=== PATIENT | male | born 2000 | race Two or more races ===

== ENCOUNTER 2020-02-25 11:03 | Emergency (ER) | payer OTHER ==
[~2020-02-25] VITALS: Ht 190.5 cm; Wt 127.0 kg
--- NOTE | 2020-02-25 12:06 | Diagnostic Imaging Report ---
[facility] HISTORY: Dizziness, nausea, high blood pressure COMPARISON: None. TECHNIQUE: Noncontrast axial scans were obtained from skull base to the vertex. Coronal and sagittal reconstructions obtained from the axial data. One or more of the following dose reduction techniques were used: Automated exposure control, adjustment of the mA and/or kV according to patient size, and/or utilization of iterative reconstruction technique. DISCUSSION: Scalp/Skull: Unremarkable. Brain sulci: Appropriate for patient's age. Ventricles: Mildly slitlike ventricles. Extra-axial spaces: No masses or fluid collections. Parenchyma: No abnormal densities. No mass, hemorrhage, or large vascular territory acute infarct. Dural sinuses: No abnormal densities. Sellar/Suprasellar region: Intact. Skull base: Intact. Incidental findings: Partially imaged mild scattered paranasal sinus mucosal thickening. IMPRESSION: 1. Nonspecific mildly slitlike ventricles, which could be seen in idiopathic intracranial hypertension. 2. No other intracranial abnormalities. Signed by: Dr. Van Kenyon M.D. on 02/25/2020 12:03 PM
--- OUTSIDE RECORDS SUMMARY | 2020-02-25 12:19 | XMS REPORT | Continuity of Care Document ---
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 Allergies, Adverse Reactions, Alerts This patient has no known allergies or adverse reactions. Medications This patient has no known medications. Procedures This patient has no known procedures. Results Test Description Test Time Test Comments Results Result Comments Source CT [facility]RAIN [facility] 2020-02-25 11:58:00 [facility] SAVANNAH CARRION : 2000 Sex: M [facility] [address] [address] Patient Name: SAVANNAH CARRION MR #: [id number] : 2000 Age/Sex: 19/M Req #: [id number] [facility] Physician: Ordered by: KARIME VÁZQUEZ MD Report #: [id number] Location: [facility] Room/Bed: Procedure: [id number] HOPD/CT [facility] Exam Date: Exam Time: REPORT STATUS: Signed CT [facility] HISTORY: Dizziness, nausea, high blood pressure COMPARISON: None. TECHNIQUE: Noncontrast axial scans were obtained from skull base to the vertex. Coronal and sagittal reconstructions obtained from the axial data. One or more of the following dose reduction techniques were used: Automated exposure control, adjustment of the mA and/or kV according to patient size, and/or utilization of iterative reconstruction technique. DISCUSSION: Scalp/Skull: Unremarkable. Brain sulci: Appropriate for patient's age. Ventricles: Mildly slitlike ventricles. Extra-axial spaces: No masses or fluid collections. Parenchyma: No abnormal densities. No mass, hemorrhage, or large vascular territory acute infarct. Dural sinuses: No abnormal densities. Sellar/Suprasellar region: Intact. Skull base: Intact. Incidental findings: Partially imaged mild scattered paranasal sinus mucosal thickening. IMPRESSION: 1. Nonspecific mildly slitlike ventricles, which could be seen in idiopathic intracranial hypertension. 2. No other intracranial abnormalities. Signed by: Dr. Van Kenyon M.D. on 02/25/2020 12:03 PM Dictated By: VAN KENYON MD 02 Transcribed By: DANIELLE on 02/25/201202 COPY TO: KARIME VÁZQUEZ MD
--- NOTE | 2020-02-25 12:25 | Emergency Department Note ---
History of Present Illnes History of Present Illness Chief Complaint: General Medicine Complaints History of Present Illness This is a 19 year old Other male Chief Complaint Comment "months" of feeling dizzy and headache x 3 days. no neuro defecits noted. cn 2-12 intact at time of triage. aaox4. ambulatory steady gait. no sob, no cp. states n/v. . Historian: Patient, Family Member Arrival Mode: Car Onset (how long ago): week(s) (2) Location: dizzy headache Quality: dizzy Radiation: Denies non-radiation, Denies back, Denies neck, Denies extremity, Denies abdomen, Denies periumbilical, Denies flank, Denies proximal, Denies distal, Denies other Severity: mild Onset quality: gradual Duration (how long): week(s) Timing of current episode: constant Progression: unchanged Chronicity: new Context: Denies recent illness, Denies recent surgery, Denies recent immobilization, Denies recent travel, Denies trauma/injury, Denies new medications, Denies hx of DVT/PE, Denies non-compliance w/ medications, Denies other Relieving factors: none Exacerbating factors: none Associated symptoms: Denies denies other symptoms, Denies confusion, Denies chest pain, Denies cough, Denies diaphoresis, Denies fever/chills, Denies headaches, Denies loss of appetite, Denies malaise, Denies nausea/vomiting, Denies rash, Denies seizure, Denies shortness of breath, Denies syncope, Denies weakness, Denies other Treatments prior to arrival: none Past Medical/Family History Physician Review I have reviewed the patient's past medical and family history. Any updates have been documented here. Past Medical History Recent Fever: No Clinical Suspicion of Infectio: No New/Unexplained Change in Ment: No Past Medical History: None Other Medical History: possible onset hypertension obesity Past Surgical History: None Social History Smoking Cessation: Unknown if ever smoked Counseling Performed: No Alcohol Use: None Any Illegal Drug Use: No Physically hurt or threatened: No Other Any Pre-Existing Lines (PICC,: No Review of Systems Review of Systems Constitutional: Reports no symptoms EENTM: Reports no symptoms Cardiovascular: Reports no symptoms Respiratory: Reports no symptoms Gastrointestinal: Reports no symptoms; Denies as per HPI, Denies abdominal pain, Denies constipation, Denies diarr hea, Denies nausea, Denies vomiting, Denies other Genitourinary: Reports no symptoms; Denies as per HPI, Denies discharge, Denies dysuria, Denies frequency, Denies hematuria, Denies pain, Denies other Musculoskeletal: Reports no symptoms; Denies as per HPI, Denies back pain, Denies gout, Denies joint pain, Denies joint swelling, Denies muscle pain, Denies muscle stiffness, Denies neck pain, Denies other Integumentary: Reports no symptoms Neurological: Reports as per HPI Psychological: Reports no symptoms; Denies as per HPI, Denies anxiety, Denies depressed, Denies emotional problems, Denies other Endocrine: Reports no symptoms; Denies as per HPI, Denies excessive sweating, Denies flushing, Denies intolerance to cold, Denies intolerance to heat, Denies increased hunger, Denies increased thirst, Denies increased urination, Denies unexplained weight gain, Denies unexplained weight loss, Denies other Hematological/Lymphatic: Reports no symptoms Physical Exam Related Data Allergies: Coded Allergies: No Known Allergies (Unverified , 02/25/20) Triage Vital Signs Vital Signs Date Time Temp Pulse Resp B/P (MAP) Pulse Ox O2 Delivery O2 Flow Rate FiO2 02/25/20 11:05 98.7 95 18 156/99 100 Room Air Vital signs reviewed: Yes Physical Exam CONSTITUTIONAL Constitutional: Present well-developed, Present well-nourished HENT HENT: Present normocephalic, Present atraumatic, Present oropharynx clear/m oist, Present nose normal HENT L/R: Present left ext ear normal, Present right ext ear normal EYES Eyes: Reports PERRL, Reports conjunctivae normal; Denies EOM normal, Denies lids normal, Denies left eye discharge, Denies right eye discharge, Denies scleral icterus, Denies other NECK Neck: Present ROM normal; Absent supple, Absent thyromegaly, Absent tracheal deviation, Absent stridor, Absent JVD, Absent cervical adenopathy, Absent carotid bruit, Absent other PULMONARY Pulmonary: Present effort normal, Present breath sounds normal; Absent respiratory distress, Absent rales, Absent rhonchi, Absent chest tenderness, Absent other CARDIOVASCULAR Cardiovascular: Present regular rhythm, Present heart sounds normal, Present capillary refill normal, Present normal rate; Absent irregular rhythm, Absent intact distal pulses, Absent tachycardia, Absent bradycardia, Absent murmur, Absent gallop, Absent friction rub, Absent palpable pulses, Absent strong pulses, Absent weak pulses, Absent LLE edema, Absent RLE edema, Absent other GASTROINTESTINAL Abdominal: Present soft, Present nontender, Present bowel sounds normal; Absent distension, Absent tender, Absent guarding, Absent mass, Absent rebound, Absent hernia, Absent left CVA tenderness, Absent right CVA tenderness, Absent other GENITOURINARY Genitourinary: Present exam deferred SKIN Skin: Present warm, Present dry MUSCULOSKELETAL Musculoskeletal: Present ROM normal NEUROLOGICAL Neurological: Present alert, Present oriented x 3, Present no gross motor or sensory deficits PSYCHOLOGICAL Psychological: Present mood/affect normal, Present judgement normal Results Laboratory Lab results reviewed: Yes Imaging Imaging results reviewed: Yes Assessment & Plan Medical Decision Making MDM vertigo tmor bleed Reassessment Reassessment same Assessment & Plan Final Impression: (1) Dizziness (2) Pseudotumor cerebri Depart Disposition: HOME, SELF-CARE Last Vital Signs Date Time Temp Pulse Resp B/P (MAP) Pulse Ox O2 Delivery O2 Flow Rate FiO2 02/25/20 11:05 98.7 95 18 156/99 100 Room Air KARIME VÁZQUEZ MD Feb 25, 2020 12:24
[2020-02-25] MEDS ORDERED: HYDROCHLOROTHIA25 MG PO (12:26)
== END 2020-02-25 13:00 | disposition home or self-care (01) ==
LOC: FSED 11:30
DX: R42 Dizziness and giddiness (principal); G93.2 Benign intracranial hypertension; R51.9 Headache, unspecified; E66.9 Obesity, unspecified
CPT/HCPCS: 70450; 80053; 81003; 85025; 99284

== ENCOUNTER 2020-12-23 11:04 | Emergency (ER) | payer OTHER ==
[~2020-12-23] VITALS: Ht 188 cm; Wt 133.4 kg
[~2020-12-23 11:04] MED LIST: HYDROCHLOROTHIA25 MG PO
[2020-12-23] MEDS ORDERED: ONDANSETRON HCL INJ 2MG/ML 2ML 2 MG/ML VIAL IV STA (11:33)
[2020-12-23] MEDS ORDERED: SODIUM CHLORIDE 0.9% 1000ML 1,000 ML IV STA (11:33)
[2020-12-23] MEDS ORDERED: SODIUM CHLORIDE 0.9% 1000ML 1,000 ML ONE (11:45)
[2020-12-23] MEDS ORDERED: CEFDINIR300 MG PO (13:06)
[2020-12-23] MEDS ORDERED: ONDANSETRON ODT4 MG PO (13:06)
[2020-12-23] MEDS ORDERED: LOSARTAN-HCTZ1 EACH (13:29)
== END 2020-12-23 13:33 | disposition home or self-care (01) ==
LOC: FSED 11:27
DX: R05 Cough (principal); R11.2 Nausea with vomiting, unspecified; J20.9 Acute bronchitis, unspecified; R00.0 Tachycardia, unspecified; I10 Essential (primary) hypertension; E66.9 Obesity, unspecified; F17.210 Nicotine dependence, cigarettes, uncomplicated
CPT/HCPCS: 80053; 83518; 85025; 87400; 96374; 99284; J2405; J7030; U0002

== ENCOUNTER 2024-04-30 19:47 | Emergency (ER) | payer OTHER ==
[~2024-04-30] VITALS: Ht 188 cm; Wt 127.9 kg
[~2024-04-30 19:47] MED LIST changes: +CEFDINIR300 MG PO; +LOSARTAN-HCTZ1 EACH; +OFLOXACIN 0.3% OD; +ONDANSETRON ODT4 MG PO; +OPTH OD
[2024-04-30 20:08] VITALS: PULSE 92; RESP 18; TEMP 98.1
[2024-04-30] MEDS: TETRACAINE HCL 0.5% OPTH SOLN 4 ML BTL OD ONE (20:24)
[2024-04-30] MEDS: FLUORESCEIN SOD(OPTH) 1 MG STRP OD ONE (20:24)
[2024-04-30] MEDS: LOSARTAN POTASSIUM 100 MG TAB PO SCH (20:25)
[2024-04-30] MEDS ORDERED: CILOXAN3.5 GM OD (20:43)
[2024-04-30] MEDS: TRAMADOL HCL 50 MG TAB PO ONE (20:59)
[2024-04-30 21:05] VITALS: BP 147/86; PULSE 90; RESP 18; TEMP 98.1; O2SAT 99
[2024-05-01] MEDS ORDERED: OFLOXACIN5 ML OT (22:08)
== END 2024-04-30 21:05 | disposition home or self-care (01) ==
LOC: FSED 20:06
DX: S05.01XA Injury of conjunctiva and corneal abrasion without foreign body, right eye, initial encounter (principal); X58.XXXA Exposure to other specified factors, initial encounter; Y92.89 Other specified places as the place of occurrence of the external cause; I10 Essential (primary) hypertension; E66.9 Obesity, unspecified
CPT/HCPCS: 99282